=== PATIENT | female | born 1955 | race Two or more races ===

== ENCOUNTER → 2019-01-20 | Outpatient (REF) | payer OTHER | LOC: M PLALAB 10:20 | DX: Z53.9 Procedure and treatment not carried out, unspecified reason (principal) ==

== ENCOUNTER → 2019-02-20 | Outpatient (CLI) | payer OTHER | LOC: M WHC 15:18 | PROVIDERS: ATTEND Nurse Practitioner Family | DX: Z78.0 Asymptomatic menopausal state (principal) ==

== ENCOUNTER → 2020-07-05 | Outpatient (CLI) | payer OTHER, SELFPAY ==
--- NOTE | 2020-06-21 10:31 | HOLTMON ---
[facility] Test Date: 2020-06-21 Pat Name: TANISHA TEST Department: Room: - Gender: Female Retail Aide: raina : 1955 Requested By: Doctor Testing Order Number: [id number] Reading MD: DOCTOR TESTING Interpretive Statements testing... this is not a real patient. enjoy..... if you get this report , please disregard. Sally Electronically Signed on 06-21-2020 10:31:01 EDT by DOCTOR TESTING
== END ==
LOC: M EKG 12-18 10:02 → M WHC 11:15
PROVIDERS: ATTEND Physician Assistant
DX: Z53.8 Procedure and treatment not carried out for other reasons (principal)

== ENCOUNTER → 2021-05-25 | Outpatient (CLI) | payer OTHER, SELFPAY | LOC: M ADAMS 12:10 | PROVIDERS: ATTEND Family Medicine | DX: R05.1 Acute cough (principal) ==

== ENCOUNTER → 2021-09-25 | Outpatient (CLI) | payer SELFPAY | LOC: M PAIN 12:00 | PROVIDERS: ATTEND Nurse Practitioner Family | DX: Z53.8 Procedure and treatment not carried out for other reasons (principal) ==

== ENCOUNTER → 2021-11-24 | Outpatient (CLI) | payer SELFPAY | LOC: M PAIN 15:30 | PROVIDERS: ATTEND Nurse Practitioner Family | DX: Z53.8 Procedure and treatment not carried out for other reasons (principal) ==

== ENCOUNTER → 2022-05-25 | Outpatient (CLI) | payer SELFPAY | LOC: M PAIN 16:15 | PROVIDERS: ATTEND Nurse Practitioner Family | DX: Z53.9 Procedure and treatment not carried out, unspecified reason (principal) ==